=== PATIENT | male | born 1995 | race Caucasian/White ===

== ENCOUNTER → 2018-12-28 | Emergency (ER) | payer SELFPAY ==
[~2018-12-28] VITALS: Ht 182.9 cm; Wt 81.6 kg
[~2018-12-28] MED LIST: KETOROLAC TROMETHAMINE 15 MG/ML VIAL ONE; KETOROLAC TROMETHAMINE INJ 30 MG/ML VIAL IM ONE
--- NOTE | 2018-12-28 10:10 | NUR ---
RIGHT RIBCAGE PAIN X 4 DAYS, DENIES ANY TRAUMA,AGGRAVATED BY DEEP BREATHING. AA/OX4, BREATHING EVEN AND UNLABORED, NO SOB NOTED. VITALS STABLE. KEPT COMFORTABLE. WAITING FOR MD PIRES.
--- NOTE | 2018-12-28 11:59 | NUR ---
Ambulatory with a steady gait. Patient discharged to home in stable condition. Written and verbal after care instructions given. Patient verbalizes understanding of instruction.
[2018-12-28 12:00] VITALS: BP 119/65
== END | disposition home or self-care (01) ==
LOC: ER 09:59
DX: R07.81 Pleurodynia (principal); I31.9 Disease of pericardium, unspecified; F20.9 Schizophrenia, unspecified; Z60.2 Problems related to living alone
CPT/HCPCS: 71045; 93005; 96372; 99283; J1885

== ENCOUNTER 2019-01-25 10:08 | Emergency (ER) | payer BC ==
[~2019-01-25] VITALS: Ht 182.9 cm; Wt 79.4 kg
[2019-01-25 10:14] VITALS: BP 134/63
--- NOTE | 2019-01-25 10:28 | NUR ---
DR. RUFFIN AT BEDSIDE FOR EVAL.
== END 2019-01-25 10:48 | disposition home or self-care (01) ==
LOC: ER 10:08
DX: M79.652 Pain in left thigh (principal); F20.9 Schizophrenia, unspecified; Z60.2 Problems related to living alone